=== PATIENT | male | born 1985 | race Caucasian/White ===

== ENCOUNTER 2019-02-06 07:25 | Inpatient (IN) | payer MEDICAID ==
[~2019-02-06] VITALS: Ht 182.9 cm; Wt 81.6 kg
[2019-02-06 08:01] LABS: BASOPHILS 0.1 % (0-2); EOSINOPHILS 1.4 % (0-7); HEMATOCRIT 38.9 % (36.0-48.0); HEMOGLOBIN 13.4 g/dL (12-16); IMMATURE GRANULOCYTES 0.3 % (0-5); LYMPHOCYTES 14.1 % (15-50); MCHC 34.4 g/dL (31.0-37.0); MEAN PLATELET VOLUME 8.7 fL (7.4-10.4); NEUTROPHILS 77.1 % (40-80); PLATELET COUNT 230 10x3/uL (130-400); RBC 4.32 10x6/uL (4.00-5.40); RDW 13.7 % (11.5-14.5); WBC 14.2 10x3/uL (4.8-10.8)
[2019-02-06 08:13] LABS: ALBUMIN 3.2 g/dL (3.4-5.0); ANION GAP 10.8 mmol/L (8-16); BILIRUBIN - TOTAL 0.65 mg/dL (0.2-1.3); CALCIUM 8.4 mg/dL (8.5-10.1); CARBON DIOXIDE 30.4 mmol/L (21.0-32.0); POTASSIUM - SERUM 4.2 mmol/L (3.5-5.1); URIC ACID 5.9 mg/dL (2.6-7.2)
--- NOTE | 2019-02-06 08:45 | NUR ---
PT OUT OF ED AT THIS TIME FOR ORDERED CT SCAN. TRANSPORTED VIA STRETCHER WITH NO SIGNS OF DISTRESS NOTED WHEN LEAVING.
--- NOTE | 2019-02-06 09:00 | NUR ---
PT BACK TO THE ED.
--- NOTE | 2019-02-06 09:23 | NUR ---
PT OBSERVED LYING IN BED, RESTING WITH EYES CLOSED. RESPIRATIONS EVEN AND UNLABORED. NO SIGNS OF DISTRESS. CALL LIGHT IN REACH. SIDE RAILS RAISED X2. BLANKET PREVIOUSLY PROVIDED FOR COMFORT. LIGHTS DIMMED, WILL CONTINUE TO MONITOR.
[2019-02-06 14:47] VITALS: BP 121/67; BMI 24.4
--- NOTE | 2019-02-06 19:09 | MORECARE ---
CASE MANAGEMENT DISCHARGE SUMMARY PATIENT: TWYLA MAE UNIT: [id number] ADM DATE: 02/06/19 AGE: 33 : 81 SEX: M ROOM/BED: D.1204 AUTHOR: RENE QUARLES PHYSICIAN: REFERRING PHYSICIAN: MARGIE RASCON MD DATE OF SERVICE: 02/06/19 Discharge Plan Patient Name: TWYLA MAE Facility: [facility]:[place] : 1985 Planned Disposition: Anticipated Discharge Date: Discharge Date: Expected LOS: Initial Reviewer: [email or web address] Initial Review Date: 02/06/2019 Generated: 02/06/19 8:09 pm Patient Name: TWYLA MAE Page [id number] at 1909 All edits/amendments must be made on the electronic document DICTATION DATE: 02/06/191908 ECHO VASC TECH: YOSEF 02/06/191908 RPT#: [id number] DC DATE: STATUS: ADM IN [facility] [address] [place] [address] END OF REPORT
--- NOTE | 2019-02-06 20:45 | NUR ---
PT C/O BARRY REQUIESTED SANDWICH. AND FRIDA GIVEN FOR PT.
--- NOTE | 2019-02-06 23:01 | NUR ---
I have reviewed this patient and I concur with the Shift Assessment completed by the Licensed Practical Nurse today this shift.
[2019-02-06 23:32] VITALS: BP 120/65
--- NOTE | 2019-02-07 01:20 | NUR ---
PT STATES PAIN IN RIGHT LEG 01/12, GAVE NORCO ORDERED. PT WANTED LINENS CHANGED, ASSISTED PT IN CHANGING TO NEW SHEETS. DENIES OTHER NEEDS. CL IN REACH, WILL CTM
[2019-02-07 04:45] VITALS: BP 115/71
[2019-02-07 05:48] LABS: BASOPHILS 0.2 % (0-2); HEMATOCRIT 37.6 % (42.0-54.0); HEMOGLOBIN 12.7 g/dL (13.5-17.5); IMMATURE GRANULOCYTES 0.2 % (0-5); LYMPHOCYTES 19.7 % (15-50); MCH 30.8 pg (26.0-34.0); MCHC 33.8 g/dL (31.0-37.0); MEAN PLATELET VOLUME 9.4 fL (7.4-10.4); MONOCYTES 9.9 % (2-11); PLATELET COUNT 250 10x3/uL (130-400); RBC 4.13 10x6/uL (4.20-6.10); WBC 12.8 10x3/uL (4.8-10.8)
[2019-02-07 06:03] LABS: CALC OSMOLALITY 279 mosm/kg (275-300); CALCIUM 8.2 mg/dL (8.5-10.1); CARBON DIOXIDE 27.1 mmol/L (21.0-32.0); CHLORIDE - SERUM 105 mmol/L (98-107); CREATININE - SERUM 0.8 mg/dL (0.6-1.3); POTASSIUM - SERUM 3.7 mmol/L (3.5-5.1); SODIUM 140 mmol/L (136-145); UREA NITROGEN 15 mg/dL (7-18); eGFR NON AFRICAN AMERICAN > 90 mL/min (90-120)
[2019-02-07 06:09] LABS: GLUCOSE 99 mg/dL (74-106)
--- NOTE | 2019-02-07 06:56 | HP ---
PATIENT: TWYLA MAE MEDICAL RECORD: [id number] ACCOUNT: [id number] LOCATION:[facility] D1204 : [birth year] ADMISSION DATE: 02/06/19 PCP: No PCP HISTORY AND PHYSICAL EXAMINATION REASON FOR ADMISSION: Right knee pain. HISTORY OF PRESENT ILLNESS: The patient is a 33-year-old male who states he has a transient living in the streets. 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 He states he walks quite a bit and walks fairly hard when he does. He walked for [place] yesterday and his knee began to bother him the day before that. It became worse last night. He came to the ED by ambulance due to the swelling and redness in the knee and pain. He described his pain as 5/10, worse with weightbearing. Denies fever or chills. Denies trauma. PAST MEDICAL HISTORY: Scoliosis, history of chronic pain syndrome in the past with addiction to pain medications, now resolved. PAST SURGICAL HISTORY: Negative. FAMILY HISTORY: He said his parents were both polydrug abuse and from overdose. One brother of overdose. MEDICATIONS: None. ALLERGIES: None. REVIEW OF SYSTEMS: CONSTITUTIONAL: No fever, fatigue, or weight change. HEENT: No recent new visual change, sinus congestion, or sore throat. RESPIRATORY: Severe cough. CARDIOVASCULAR: No chest pain, claudication, or edema. GASTROINTESTINAL: No nausea, vomiting, change in stools, blood per rectum. GENITOURINARY: No incontinence, dysuria, or nocturia. MUSCULOSKELETAL: He is having some pain in his right knee, just a touch or with flexion. Pain with weightbearing. PSYCHIATRIC: Denies depressed mood. No history of psychiatric illness. NEUROLOGICAL: Denies headaches, seizures, or memory loss. PHYSICAL EXAMINATION: VITAL SIGNS: Temperature is 98.7 Fahrenheit orally, respirations 16, blood pressure 126/81 with a sat 100% on room air. GENERAL: The patient is alert and oriented. HEENT: Unremarkable except he is missing several of his right upper maxillary teeth. NECK: Supple. CHEST: Clear. HEART: Regular without murmur. ABDOMEN: Soft. GENITOURINARY: Deferred. EXTREMITIES: He has some erythema, edema over the right lateral knee and patella. Warm to the touch. No skin lesions are noted. No pustules. MUSCULOSKELETAL: He has slight decrease in flexion of his right knee with some HISTORY AND PHYSICAL [id number] MAE,TWYLA pain, but ambulates with minimal difficulty. Neurovascular appears intact. PSYCHIATRIC: The patient has grandiose behavior. NEUROLOGIC: Denies suicidal ideation or history of depression. LABORATORY DATA: White count of 14.2 thousand with normal diff, H and H is 13 and 38.9 respectively. Urine drug screen is pending. UA is pending. Blood sugar nonfasting is 162. ALT is 88. CT of the right knee with contrast showed moderate subcutaneous edema in the soft tissues anteriorly and laterally from the inferior femoral diaphysis down to the proximal tibial metadiaphysis consistent with cellulitis. No evidence of fluid collections or osteomyelitis are noted. ASSESSMENT: 1. Cellulitis, right knee, doubt effusion. 2. History of scoliosis. 3. History of polydrug abuse. PLAN: ED felt the patient should be admitted because he is homeless, will not take medications or refill them in his place. Cultures of blood and urine be obtained. He will be placed on IV Rocephin and vancomycin with pharmacy consult. Monitor for signs of DTs with history of alcohol use. He states that is not an issue currently. TRANSINT:[id number] Voice Confirmation ID: [id number] DOCUMENT ID: [id number] MARGIE RASCON MD at 0656 CC: [id number] DICTATION DATE: 02/06/19 1312 HISTOLOGIST TECHNOLOGIST: 02/06/19 2322 ADM IN [place] [address] [place] [address]
--- NOTE | 2019-02-07 07:00 | NUR ---
REPORT RECIEVED. PT SITTING UP IN BED. DR RASCON IN ROOM TO GET CULTURE OF R KNEE. RR EVEN AND UNLABORED. PT CURRENTLY HAS NO PIV. BED LOCKED AND IN LOWEST POSITION. CALL LIGHT WITHIN REACH. CULTURE TAKIN TO LAB. WILL CTM
[2019-02-07 08:30] LABS: UDS - AMPHET POSITIVE QUAL (NEGATIVE); UDS - BARB NEGATIVE QUAL (NEGATIVE); UDS - BENZO NEGATIVE QUAL (NEGATIVE); UDS - COCAINE NEGATIVE QUAL (NEGATIVE); UDS - OPIATE POSITIVE QUAL (NEGATIVE); UDS - PCP NEGATIVE QUAL (NEGATIVE); UDS - THC POSITIVE QUAL (NEGATIVE)
--- NOTE | 2019-02-07 08:45 | NUR ---
PIV INSTERED TO RIGHT HAND X1 ATTEMPT.
[2019-02-07 08:57] LABS: APPEARANCE HAZY (CLEAR); BILIRUBIN NEGATIVE (NEGATIVE); COLOR DK YELLOW (YELLOW); GLUCOSE NEGATIVE (NEGATIVE); KETONE NEGATIVE (NEGATIVE); NITRITE NEGATIVE (NEGATIVE); PROTEIN NEGATIVE (NEGATIVE); SPECIFIC GRAVITY 1.025 (1.005-1.020); WHITE CELLS - URINE 0-5 /hpf (0-5)
[2019-02-07 08:58] LABS: BACTERIA FEW /hpf (NONE SEEN); EPITHELIAL CELLS 0-5 /hpf (0-5); MUCUS >1+ /lpf (NONE SEEN); RED CELLS - URINE NONE SEEN /hpf (0-5)
--- NOTE | 2019-02-07 10:21 | MORECARE ---
CASE MANAGEMENT DISCHARGE SUMMARY PATIENT: TWYLA MAE UNIT: [id number] ADM DATE: 02/06/19 AGE: 33 : 81 SEX: M ROOM/BED: D.1204 AUTHOR: RENE QUARLES PHYSICIAN: REFERRING PHYSICIAN: MARGIE RASCON MD DATE OF SERVICE: 02/07/19 Discharge Plan Patient Name: TWYLA MAE [facility] : 1985 Planned Disposition: Anticipated Discharge Date: Discharge Date: Expected LOS: Initial Reviewer: [email or web address] Initial Review Date: 02/06/2019 Generated: 02/07/19 11:20 am Last DP export: 02/06/19 6:09 pm Patient Name: TWYLA MAE Page 62439 at 1021 All edits/amendments must be made on the electronic document DICTATION DATE: 02/07/19 1020 LEGISLATIVE AIDE: YOSEF 02/07/19 1020 RPT#: [id number] DC DATE: STATUS: ADM IN [facility] [address] [place] [address] END OF REPORT
--- NOTE | 2019-02-07 16:17 | NUR ---
SPOKE WITH OVER THE PHONE ABOUT GETTING PT SOMETHING DIFFERENT FOR PAIN BC PT STATES WHAT WE'RE GIVING HIM ISNT HELPING, BUT DID NOT WANT TO CHANGE ANY MEDICATIONS. WILL CTM
[2019-02-07 20:03] VITALS: BP 126/81
[2019-02-08] VITALS: BP 121/74
[2019-02-08 04:00] VITALS: BP 109/75
--- NOTE | 2019-02-08 04:40 | NUR ---
ASSESSED AT THE BEGINNING OF THE SHIFT. PT WAS ALERT AND ORIENTED, ABLE TO VERBALIZE NEEDS. HE HAS RESTED QUIET AND NOT HAD ANY COMPLAINTS, USING THE URINAL INSTEAD OF GETTING UP TO THE BATHROOM. HE ALLOWED DRESSING CHANGE TO HIS RIGHT KNEE AND TOLERATED IT WELL. AT MIDNIGHT HE HAD A TEMP OF 100.7 BUT RECEIVED NORCO FOR PAIN SO NO TYLENOL WAS GIVEN. AT 0400 THIS MORNING HE HAD A TEMP OF 100.0. NO TYLENOL WAS GIVEN AT THIS TIME BUT IT WILL BE MONITORED.
--- NOTE | 2019-02-08 06:28 | NUR ---
TEMP WENT DOWN TO 99. THIS MORNING BUT PT WAS STILL GIVEN TYLENOL DUE TO HIS PAIN.
[2019-02-08 06:44] LABS: BASOPHILS 0.1 % (0-2); EOSINOPHILS 1.6 % (0-7); HEMATOCRIT 39.1 % (42.0-54.0); HEMOGLOBIN 13.4 g/dL (13.5-17.5); IMMATURE GRANULOCYTES 0.3 % (0-5); MCH 30.7 pg (26.0-34.0); MCHC 34.3 g/dL (31.0-37.0); MCV 89.7 fL (80.0-100.0); MEAN PLATELET VOLUME 8.6 fL (7.4-10.4); MONOCYTES 10.1 % (2-11); NEUTROPHILS 71.9 % (40-80); PLATELET COUNT 232 10x3/uL (130-400); RBC 4.36 10x6/uL (4.20-6.10); RDW 13.7 % (11.5-14.5); WBC 14.2 10x3/uL (4.8-10.8)
--- NOTE | 2019-02-08 07:45 | NUR ---
REPORT RECIEVED. PT SITTING HIGH FOWLERS. R HAND PIV INFUSING NS @ 75. RR EVEN AND UNLABORED. BED LOCKED AND IN LOWEST POSITION. CALL LIGHT WITHIN REACH. WILL CTM
[2019-02-08 09:22] VITALS: BP 119/70
[2019-02-08 09:40] LABS: ERYTHROCYTE SEDIMENTATION RATE 34 mm/hr (0-15)
[2019-02-08 11:59] VITALS: Ht 182.9 cm; Wt 81.6 kg
[2019-02-08 16:08] VITALS: BP 126/87
--- NOTE | 2019-02-08 17:29 | MORECARE ---
CASE MANAGEMENT DISCHARGE SUMMARY PATIENT: TWYLA MAE UNIT: [id number] ADM DATE: 02/06/19 AGE: 33 : 81 SEX: M ROOM/BED: D.1204 AUTHOR: RENE QUARLES PHYSICIAN: REFERRING PHYSICIAN: MARGIE RASCON MD DATE OF SERVICE: 02/08/19 Discharge Plan Patient Name: TWYLA MAE Facility: [facility]:[place] : 1985 Planned Disposition: Home or Self Care Anticipated Discharge Date: Discharge Date: Expected LOS: Initial Reviewer: [email or web address] Initial Review Date: 02/08/2019 Generated: 02/08/19 6:29 pm Last DP export: 02/07/19 9:21 am Patient Name: TWYLA MAE Page 93656 at 1720 All edits/amendments must be made on the electronic document DICTATION DATE: 02/08/191728 QUALITY ASSURANCE MONITOR CHASSIS: YOSEF 02/08/191728 RPT#: [id number] DC DATE: STATUS: ADM IN [facility] [address] [place] [address] END OF REPORT
--- NOTE | 2019-02-08 17:37 | MORECARE ---
CASE MANAGEMENT DISCHARGE SUMMARY PATIENT: TWYLA MAE UNIT: [id number] ADM DATE: 02/06/19 AGE: 33 : 81 SEX: M ROOM/BED: D.1204 AUTHOR: RENE QUARLES PHYSICIAN: REFERRING PHYSICIAN: MARGIE RASCON MD DATE OF SERVICE: 02/08/19 Discharge Plan Patient Name: TWYLA MAE [facility] : 1985 Planned Disposition: Home or Self Care Anticipated Discharge Date: Discharge Date: Expected LOS: Initial Reviewer: [email or web address] Initial Review Date: 02/08/2019 Generated: 02/08/19 6:37 pm DCPIA - Discharge Planning Initial Assessment Updated by [email or web address]: Linda Andrade on 02/08/19 5:30 pm * Is the patient Alert and Oriented? Yes * PCP NO PCP * Pharmacy NO PHARMACY * Preadmission Environment Homeless * ADLs Independent * List name and contact numbers for known caregivers / representatives who currently or will assist patient after discharge: NO CONTACTS * Verbal permission to speak to the caregivers and representatives has been obtained from the patient. N/A * Community resources currently utilized None * Additional services required to return to the preadmission environment? No * Can the patient safely return to the preadmission environment? Yes * Has this patient been hospitalized within the prior 30 days at any hospital? No Last DP export: 02/08/19 4:29 pm Patient Name: TWYLA MAE Page 84442 at 1737 All edits/amendments must be made on the electronic document DICTATION DATE: 02/08/191736 ERGONOMICS ENGINEER: YOSEF 02/08/191736 RPT#: [id number] DC DATE: STATUS: ADM IN [address] [place] [address] END OF REPORT
--- NOTE | 2019-02-08 17:45 | MORECARE ---
CASE MANAGEMENT DISCHARGE SUMMARY PATIENT: TWYLA MAE UNIT: [id number] ADM DATE: 02/06/19 AGE: 33 : 81 SEX: M ROOM/BED: D.1204 AUTHOR: RENE QUARLES PHYSICIAN: REFERRING PHYSICIAN: MARGIE RASCON MD DATE OF SERVICE: 02/08/19 Discharge Plan Patient Name: TWYLA MAE Facility: [facility]:[place] : 1985 Planned Disposition: Home or Self Care Anticipated Discharge Date: Discharge Date: Expected LOS: Initial Reviewer: [email or web address] Initial Review Date: 02/08/2019 Generated: 02/08/19 6:44 pm Comments DCP- Discharge Planning Updated by [email or web address]: Linda Andrade on 02/08/19 4:[address] Patient Name: TWYLA MAE Admission Status: ER Accout number: [id number] Admission Date: 02-06-2019 : 1985 Admission Diagnosis: Attending: MARGIE RASCON Current LOS: 2 Anticipated DC Date: Planned Disposition: Home or Self Care Primary Insurance: MEDICAID [place] PENDING Discharge Planning Comments: CM met with patient at bedside after explaining CM role and obtaining verbal consent. Patient homeless lives on the streets where he is independent with his care and plans to return there upon discharge. CM discussed local shelters and asked if he would like information on shelters. Patient stated that he did not need information on shelters. "He knows about all the local shelters". CM asked patient if he had means to get discharge medications. patient's response was "maybe" CM stated that if it generic script it could be on 4 dollar list at [facility]. Patient stated that he has a hard time getting prescriptions filled d/t not having an ID. Hopefully patient will receive all antibiotic needed prior to discharge. CM asked if [employer] had came in to assist with potential Medicaid. " I don't know" Patient denies any discharge needs at this time. CM will continue to follow and assist as needed with discharge planning / needs. Generation Technician: Linda Andrade DCPIA - Discharge Planning Initial Assessment Updated by [email or web address]: Linda Andrade on 02/08/19 5:30 pm * Is the patient Alert and Oriented? Yes * PCP NO PCP * Pharmacy NO PHARMACY * Preadmission Environment Homeless * ADLs Independent * List name and contact numbers for known caregivers / representatives who currently or will assist patient after discharge: NO CONTACTS * Verbal permission to speak to the caregivers and representatives has been obtained from the patient. N/A * Community resources currently utilized None * Additional services required to return to the preadmission environment? No * Can the patient safely return to the preadmission environment? Yes * Has this patient been hospitalized within the prior 30 days at any hospital? No Last DP export: 02/08/19 4:37 pm Patient Name: TWYLA MAE Page 62513 at 1745 All edits/amendments must be made on the electronic document DICTATION DATE: 02/08/191743 SLUNK SKINNER: YOSEF 02/08/191743 RPT#: [id number] DC DATE: STATUS: ADM IN [facility] [address] [place] [address] END OF REPORT
--- NOTE | 2019-02-08 17:52 | MORECARE ---
CASE MANAGEMENT DISCHARGE SUMMARY PATIENT: TWYLA MAE UNIT: [id number] ADM DATE: 02/06/19 AGE: 33 : 81 SEX: M ROOM/BED: D.1204 AUTHOR: RENE QUARLES PHYSICIAN: REFERRING PHYSICIAN: MARGIE RASCON MD DATE OF SERVICE: 02/08/19 Discharge Plan Patient Name: TWYLA MAE Facility: [facility]:[place] : 1985 Planned Disposition: Home or Self Care Anticipated Discharge Date: Discharge Date: Expected LOS: Initial Reviewer: [email or web address] Initial Review Date: 02/08/2019 Generated: 02/08/19 6:51 pm Comments DCP- Discharge Planning Updated by [email or web address]: Linda Andrade on 02/08/19 4:[address] Patient Name: TWYLA MAE Admission Status: ER Accout number: [id number] Admission Date: 02-06-2019 : 1985 Admission Diagnosis: Attending: MARGIE RASCON Current LOS: 2 Anticipated DC Date: Planned Disposition: Home or Self Care Primary Insurance: MEDICAID [place] PEND[place] Discharge Planning Comments: CM met with patient at bedside after explaining CM role and obtaining verbal consent. Patient homeless lives on the streets where he is independent with his care and plans to return there upon discharge. CM discussed local shelters and asked if he would like information on shelters. Patient stated that he did not need information on shelters. "He knows about all the local shelters". CM asked patient if he had means to get discharge medications. patient's response was "maybe" CM stated that if it generic script it could be on 4 dollar list at [facility]. Patient stated that he has a hard time getting prescriptions filled d/t not having an ID. Hopefully patient will receive all antibiotic needed prior to discharge. CM asked if [employer] had came in to assist with potential Medicaid. " I don't know" Patient denies any discharge needs at this time. CM will continue to follow and assist as needed with discharge planning / needs. Process Improvement Consultant: Linda Andrade Appended by Linda Andrade on 02/08/2019 17:46 CDT: Spoke with Tyree in [employer]. Patient has Medicaid pending at this time. Medicaid should be processed within a week. DCPIA - Discharge Planning Initial Assessment Updated by [email or web address]: Linda Andrade on 02/08/19 5:30 pm * Is the patient Alert and Oriented? Yes * PCP NO PCP * Pharmacy NO PHARMACY * Preadmission Environment Homeless * ADLs Independent * List name and contact numbers for known caregivers / representatives who currently or will assist patient after discharge: NO CONTACTS * Verbal permission to speak to the caregivers and representatives has been obtained from the patient. N/A * Community resources currently utilized None * Additional services required to return to the preadmission environment? No * Can the patient safely return to the preadmission environment? Yes * Has this patient been hospitalized within the prior 30 days at any hospital? No Last DP export: 02/08/19 4:45 pm Patient Name: TWYLA MAE Page 15600 at 1752 All edits/amendments must be made on the electronic document DICTATION DATE: 02/08/191750 LIAISON INSPECTION LABORATORY ASSISTANT: YOSEF 02/08/191750 RPT#: [id number] DC DATE: STATUS: ADM IN [facility] [address] [place] [address] END OF REPORT
--- NOTE | 2019-02-08 19:29 | NUR ---
BEDSIDE REPORT AND INITIAL ROUNDS COMPLETED. PT RESTING IN BED WITH NO DISTRESS. RESPS EVEN/NONLABORED. DRESSING RIGHT KNEE C/D/I. CALL LIGHT IN REACH. CPOC.
[2019-02-08 20:00] VITALS: BP 116/82
--- NOTE | 2019-02-08 22:30 | NUR ---
MEDICATED WITH NORCO FOR PAIN. REMOVED OLD DRESSING TO RIGHT KNEE. GENTLY COMPRESSED SEROSANGUINOUS DRAINAGE FROM SMALL INCISION AREA AND THEN APPLIED MUPURICIN OINTMENT TO ENTIRE KNEE, COVERED WITH 4X4'S AND SECURED WITH PAPER TAPE. PT IS FEBRILE AT 99.9, BUT NORCO SHOULD DECREASE TEMP. WILL MONITOR.
--- NOTE | 2019-02-09 00:08 | NUR ---
RESTING WITH EYES CLOSED. CPOC.
[2019-02-09 01:00] VITALS: BP 122/80
--- NOTE | 2019-02-09 01:21 | NUR ---
VSS. STILL FEBRIL AT 99.4, HAS RECIEVED NORCO THAT SHOULD HELP WITH TEMP. CPOC.
[2019-02-09 06:56] LABS: BASOPHILS 0.2 % (0-2); EOSINOPHILS 2.6 % (0-7); HEMATOCRIT 38.5 % (42.0-54.0); HEMOGLOBIN 13.2 g/dL (13.5-17.5); IMMATURE GRANULOCYTES 0.3 % (0-5); LYMPHOCYTES 18.5 % (15-50); MCHC 34.3 g/dL (31.0-37.0); MCV 90.4 fL (80.0-100.0); MEAN PLATELET VOLUME 9.2 fL (7.4-10.4); MONOCYTES 10.9 % (2-11); NEUTROPHILS 67.5 % (40-80); PLATELET COUNT 265 10x3/uL (130-400); RBC 4.26 10x6/uL (4.20-6.10); RDW 13.6 % (11.5-14.5); WBC 12.5 10x3/uL (4.8-10.8)
[2019-02-09 07:18] LABS: CALC OSMOLALITY 276 mosm/kg (275-300); CALCIUM 8.6 mg/dL (8.5-10.1); CARBON DIOXIDE 28.4 mmol/L (21.0-32.0); CHLORIDE - SERUM 103 mmol/L (98-107); CREATININE - SERUM 0.8 mg/dL (0.6-1.3); GLUCOSE 94 mg/dL (74-106); POTASSIUM - SERUM 4.2 mmol/L (3.5-5.1); SODIUM 140 mmol/L (136-145); UREA NITROGEN 8 mg/dL (7-18); eGFR NON AFRICAN AMERICAN > 90 mL/min (90-120)
[2019-02-09 08:15] VITALS: BP 110/89
--- NOTE | 2019-02-09 08:30 | NUR ---
PT ALERT X 4. BREATH SOUNDS CLEAR BILAT. IV TO RIGHT HAND, PATENT, DRESSING CDI. PT REPORTING PAIN OF 7/10, MEDICATED PER ORDERS, WILL MONITOR. DRESSING TO RIGHT KNEE CHANGED. BED LOW, CALL LIGHT IN REACH. NO OTHER NEEDS AT THIS TIME.
[2019-02-09] MEDS ORDERED: MUPIROCIN22 GM TOPICAL (10:07)
[2019-02-09] MEDS ORDERED: VIBRAMYCIN 100100 MG PO (10:08)
--- NOTE | 2019-02-09 10:51 | NUR ---
SPOKE WITH DR. LAINEZ, RECEIVED PERMISSION TO CALL MEDS INTO [facility]. CALLED [facility], SPOKE WITH FERMÍN. EXPLAINED TO PT ABOUT MANAGER DEVELOPMENT WITH FACE SHEET, WITH LACK OF ID.
--- NOTE | 2019-02-09 11:10 | MORECARE ---
CASE MANAGEMENT DISCHARGE SUMMARY PATIENT: TWYLA MAE UNIT: [id number] ADM DATE: 02/06/19 AGE: 33 : 81 SEX: M ROOM/BED: D.1204 AUTHOR: RENE QUARLES PHYSICIAN: REFERRING PHYSICIAN: MARGIE RASCON MD DATE OF SERVICE: 02/09/19 Discharge Plan Patient Name: TWYLA MAE Facility: [facility]:[place] : 1985 Planned Disposition: Home or Self Care Anticipated Discharge Date: 02/09/19 Discharge Date: Expected LOS: 3 Initial Reviewer: [email or web address] Initial Review Date: 02/08/2019 Generated: 02/09/19 12:10 pm Comments DCP- Discharge Planning Updated by [email or web address]: Gloria Jones on 02/09/19 10:[address] PATIENT HAS HIS OWN ARRANGEMENT AT DISCHARGE. HE IS [employer]. THE NURSE IS GIVNG HIM HIS OINTMENT FOR DRESSING CHANGES. DISCUSSED CALLING HIS VIBRAMYCIN PRESCRIPTION INTO [facility] WITH PATENT TO PICKUP BY [facility]. CASE MANAGEMNT DEPARTMENT TO OBTAIN THRU CM APPROVAL. TC TO [facility] . SPOKE WITH JUNIOR. CM APPROVAL FOR VIBRAMYCIN 100 MGM PO BID. DCP- Discharge Planning Updated by [email or web address]: Linda Lupe on 02/08/19 4:[address] Patient Name: TWYLA MAE Admission Status: ER Accout number: [id number] Admission Date: 02-06-2019 : 1985 Admission Diagnosis: Attending: MARGIE RASCON Current LOS: 2 Anticipated DC Date: Planned Disposition: Home or Self Care Primary Insurance: MEDICAID [place] PENDING Discharge Planning Comments: CM met with patient at bedside after explaining CM role and obtaining verbal consent. Patient homeless lives on the streets where he is independent with his care and plans to return there upon discharge. CM discussed local shelters and asked if he would like information on shelters. Patient stated that he did not need information on shelters. "He knows about all the local shelters". CM asked patient if he had means to get discharge medications. patient's response was "maybe" CM stated that if it generic script it could be on 4 dollar list at [facility]. Patient stated that he has a hard time getting prescriptions filled d/t not having an ID. Hopefully patient will receive all antibiotic needed prior to discharge. CM asked if [employer] had came in to assist with potential Medicaid. " I don't know" Patient denies any discharge needs at this time. CM will continue to follow and assist as needed with discharge planning / needs. Library Historian: Linda Andrade Appended by Linda Andrade on 02/08/2019 17:46 CDT: Spoke with Tyree in [employer]. Patient has Medicaid pending at this time. Medicaid should be processed within a week. DCPIA - Discharge Planning Initial Assessment Updated by [email or web address]: Linda Andrade on 02/08/19 5:30 pm * Is the patient Alert and Oriented? Yes * PCP NO PCP * Pharmacy NO PHARMACY * Preadmission Environment Homeless * ADLs Independent * List name and contact numbers for known caregivers / representatives who currently or will assist patient after discharge: NO CONTACTS * Verbal permission to speak to the caregivers and representatives has been obtained from the patient. N/A * Community resources currently utilized None * Additional services required to return to the preadmission environment? No * Can the patient safely return to the preadmission environment? Yes * Has this patient been hospitalized within the prior 30 days at any hospital? No Last DP export: 02/08/19 4:52 pm Patient Name: TWYLA MAE Page 59083 at 1110 All edits/amendments must be made on the electronic document DICTATION DATE: 02/09/191108 TURNTABLE ENGINEER: YOSEF 02/09/19 110 RPT#: [id number] DC DATE: STATUS: ADM IN [facility] [address] [place] [address] END OF REPORT
--- NOTE | 2019-02-09 11:57 | NUR ---
DISCHARGE PAPERWORK SIGNED, ALL QUESTIONS ANSWERED. IV TO RIGHT HAND DC'D, TIP INTACT. PT AMBULATED OUT
--- NOTE | 2019-02-11 08:49 | MORECARE ---
CASE MANAGEMENT DISCHARGE SUMMARY PATIENT: TWYLA MAE UNIT: [id number] ADM DATE: 02/06/19 AGE: 33 : 81 SEX: M ROOM/BED: D.1204 AUTHOR: RENE QUARLES PHYSICIAN: REFERRING PHYSICIAN: MARGIE RASCON MD DATE OF SERVICE: 02/11/19 Discharge Plan Patient Name: TWYLA MAE Facility: [facility]:[place] : 1985 Planned Disposition: Home or Self Care Anticipated Discharge Date: 02/09/19 Discharge Date: 02/09/2019 Expected LOS: 3 Initial Reviewer: [email or web address] Initial Review Date: 02/08/2019 Generated: 02/11/19 9:49 am Comments DCP- Discharge Planning Updated by [email or web address]: Gloria Jones on 02/09/19 10:[address] PATIENT HAS HIS OWN ARRANGEMENT AT DISCHARGE. HE IS [employer]. THE NURSE IS GIVNG HIM HIS OINTMENT FOR DRESSING CHANGES. DISCUSSED CALLING HIS VIBRAMYCIN PRESCRIPTION INTO [facility] WITH PATENT TO PICKUP BY [facility]. CASE MANAGEMNT DEPARTMENT TO OBTAIN THRU CM APPROVAL. TC TO [facility] . SPOKE WITH JUNIOR. CM APPROVAL FOR VIBRAMYCIN 100 MGM PO BID. DCP- Discharge Planning Updated by [email or web address]: Linda Andrade on 02/08/19 4:[address] Patient Name: TWYLA MAE Admission Status: ER Accout number: [id number] Admission Date: 02-06-2019 : 1985 Admission Diagnosis: Attending: MARGIE RASCON Current LOS: 2 Anticipated DC Date: Planned Disposition: Home or Self Care Primary Insurance: MEDICAID [place] PEND[place] Discharge Planning Comments: CM met with patient at bedside after explaining CM role and obtaining verbal consent. Patient homeless lives on the streets where he is independent with his care and plans to return there upon discharge. CM discussed local shelters and asked if he would like information on shelters. Patient stated that he did not need information on shelters. "He knows about all the local shelters". CM asked patient if he had means to get discharge medications. patient's response was "maybe" CM stated that if it generic script it could be on 4 dollar list at [facility]. Patient stated that he has a hard time getting prescriptions filled d/t not having an ID. Hopefully patient will receive all antibiotic needed prior to discharge. CM asked if [employer]-data had came in to assist with potential Medicaid. " I don't know" Patient denies any discharge needs at this time. CM will continue to follow and assist as needed with discharge planning / needs. Accounts Payables Clerk: Linda Andrade Appended by Linda Andrade on 02/08/2019 17:46 CDT: Spoke with Tyree in [employer]. Patient has Medicaid pending at this time. Medicaid should be processed within a week. DCPIA - Discharge Planning Initial Assessment Updated by [email or web address]: Linda Andrade on 02/08/19 5:30 pm * Is the patient Alert and Oriented? Yes * PCP NO PCP * Pharmacy NO PHARMACY * Preadmission Environment Homeless * ADLs Independent * List name and contact numbers for known caregivers / representatives who currently or will assist patient after discharge: NO CONTACTS * Verbal permission to speak to the caregivers and representatives has been obtained from the patient. N/A * Community resources currently utilized None * Additional services required to return to the preadmission environment? No * Can the patient safely return to the preadmission environment? Yes * Has this patient been hospitalized within the prior 30 days at any hospital? No Last DP export: 02/09/19 10:10 am Patient Name: TWYLA MAE Page [id number] at 0849 All edits/amendments must be made on the electronic document DICTATION DATE: 02/11/1951 PSYCHOLOGY INTERN: YOSEF 02/11/19 0849 RPT#: [id number] DC DATE:02/09/19 STATUS: DIS IN [facility] [address] [place] [address] END OF REPORT
== END 2019-02-09 11:58 | disposition home or self-care (01) | DRG 603 ==
LOC: D.ER 07:25 → EDSEX 07:25 → D.M3 10:34 → D.SDCHOLD 11:24 → D.M3 11:24
PROVIDERS: Family Medicine; ADMIT Family Medicine; ATTEND Family Medicine
DX: L03.115 Cellulitis of right lower limb (principal); Z59.0 Homelessness; B95.62 Methicillin resistant Staphylococcus aureus infection as the cause of diseases classified elsewhere; F19.10 Other psychoactive substance abuse, uncomplicated; F17.210 Nicotine dependence, cigarettes, uncomplicated